=== PATIENT | male | born 1965 | race Caucasian/White ===

== ENCOUNTER 2017-05-22 12:15 | Emergency (ER) | payer OTHER ==
--- NOTE | 2017-05-22 13:29 | EDPHY ---
H & P Stated Complaint: siezures starting last , cognitive changes, ? withdrawl from ambien Time Seen by Provider: 05/22/17 13:28 - Personal History Current Tetanus/Diphtheria Vaccine: Yes Current Tetanus Diphtheria and Acellular Pertussis (TDAP): Yes Tetanus Vaccine Date: 2011 - Medical/Surgical History Hx Asthma: No Hx Chronic Respiratory Disease: No Hx Diabetes: No Hx Cardiac Disease: No Hx Renal Disease: No Hx Cirrhosis: No Hx Alcoholism: No Hx HIV/AIDS: No Hx Splenectomy or Spleen Trauma: No Other PMH: hyperlipidemia - Social History Smoking Status: Never smoked Constitutional: Initial Vital Signs Temperature (C) 37.1 C 05/22/17 12:21 Heart Rate 76 05/22/17 12:21 Respiratory Rate 1 L 05/22/17 12:21 Blood Pressure 161/101 H 05/22/17 12:21 O2 Sat (%) 95 05/22/17 12:21 O2 Delivery Mode Room Air Allergies/Adverse Reactions: aspirin Allergy (Intermediate, Verified 05/22/17 12:20) Sulfa (Sulfonamide Antibiotics) [Sulfa(Sulfonamide Antibiotics)] Allergy ( Verified 05/22/17 12:20) Home Medications: Medication Instructions Recorded Atorvastatin Calcium [Lipitor 40 40 mg PO DAILY 11/23/12 mg (RX)] Medical Decision Making - Diagnostics Imaging: Discussed imaging studies w/ scalloper Radiologist, I viewed and interpreted images myself ED Course/Re-evaluation: CHIEF COMPLAINT: Cognitive changes and arm "seizures" HISTORY OF PRESENT ILLNESS: The patient is a 52 y/o male complaining of cognitive issues and right arm "seizures" for the last 3 weeks since stopping Ambien use. He says, "I've been having some disorientation that started 3 weeks ago," which he describes as "sophia-vu with anxiety and panic in there that passes quickly." Last , 5 days ago, "I started having a physical seizure in my arm that has occurred continuously every 5 minutes." He describes this as a right arm spasm that he can't control and occasional an associated small jerk in his right leg. He correlates his symptoms with stopping Ambien and reports he had no symptoms prior to discontinuance of this medication. He saw his PCP today for this and had labs drawn and an EEG ordered. He denies neck or back pain, headache, fever, recent trauma, or infectious symptoms. He has been able to exercise and ride his bike through these "seizures," but is able to pull his hand off the bike when they occur. He is normally healthy, but notes he's been under a lot of stress recently. REVIEW OF SYSTEMS: A 10 point review of systems was performed and is negative with the exception of the elements mentioned in the history of present illness. PHYSICAL EXAM: HR, BP, O2 Sat, RR. Temp noted General Appearance: Alert, well hydrated, appropriate, and non-toxic appearing. Head: Atraumatic without scalp tenderness or obvious injury Eyes: Pupils equal, round, reactive to light and accommodation, EOMI, no trauma , no injection. Nose: Atraumatic, no rhinorrhea, clear. Throat: Mucus membranes moist. Neck: Supple, nontender, no lymphadenopathy. Respiratory: No retractions, no distress, no wheezes, and no accessory muscle use. Lungs are clear to auscultation bilaterally. Cardiovascular: Regular rate and rhythm, no murmurs, rubs, or gallops. Good capillary refill all extremities. Gastrointestinal: Abdomen is soft, nontender, non-distended, no masses, no rebound, no guarding, no peritoneal signs. Musculoskeletal: Normal active ROM of all extremities, atraumatic. Neurological: Alert, appropriate, and interactive. Isolated right upper extremity contracture that lasts 2-3 seconds and includes hand, otherwise non- focal. Skin: No rashes, good turgor, no nodules on palpation. Past medical history: Hyperlipidemia Past surgical history: Denies Family history: Noncontributory Social history: Lives in [place], , employed. DIAGNOSTICS/PROCEDURES/CRITICAL CARE TIME: Head CT and CTA: negative DIFFERENTIAL DIAGNOSIS: The differential diagnosis for the patient's seizure included but was not limited to electrolyte abnormality, alcohol withdrawal, medication noncompliance, head injury, MEDICAL GENETICIST structural abnormality, and break through seizure. MEDICAL DECISION MAKING: This is a normally healthy 52 y/o male who presents with a 3-week history of cognitive changes described as "disorientation" and sophia vu" now associated with a right upper arm spasm every few minutes for the last 5 days. During assessment he does appear to have an involuntary 2-3 second contracture of his right arm with finger involvement. Otherwise normal neuro exam. He does appear quite anxious. Labs performed by his PCP this morning were normal. Plan for head CT and CTA to rule out structural causes for what appears to be a brief focal motor seizure. Reassessed patient and discussed results. Imaging is negative. Patient will be referred to neurology for follow up with standard precautions. He is comfortable with this plan. Departure - Departure Disposition: Home, Routine, Self-Care Clinical Impression: Cognitive changes, Focal motor seizure disorder, of right arm Condition: Good Instructions: New-Onset Seizure in Adults (ED) Additional Instructions: Follow up with neurologist this week. Do perform activities that could put you or others at risk in case of recurrent seizure until cleared by neurologist. Return to the ED for any worsening of condition. Referrals: Indu Linn PA [Primary Care Provider] - As per Instructions José Miguel Gracia MD [Medical Doctor] - As per Instructions Report Scribed for: Cristian Live Report Scribed by: Vanessa López Date of Report: 05/22/17 Time of Report: 13:54
[2017-05-22] MEDS ORDERED: IOPAMIDOL (ISOVUE-300) 100 ML BTL ONE (14:07)
[2017-05-22 15:29] VITALS: BP 159/95; PULSE 74; RESP 16; TEMP 97.9; O2SAT 93
== END 2017-05-22 15:29 | disposition home or self-care (01) ==
DX: G40.409 Other generalized epilepsy and epileptic syndromes, not intractable, without status epilepticus (principal); R41.89 Other symptoms and signs involving cognitive functions and awareness
CPT/HCPCS: Q9967

== ENCOUNTER 2017-05-24 11:58 | Observation (INO) | payer OTHER ==
[2017-05-24 12:04] VITALS: RESP 16
[2017-05-24] MEDS ORDERED: levETIRAcetam 1000MG/NACL 100 ML IV ONE (12:09)
--- NOTE | 2017-05-24 12:12 | EDPHY ---
H & P Time Seen by Provider: 05/24/17 12:10 HPI/ROS: CHIEF COMPLAINT: Seizures HISTORY OF PRESENT ILLNESS: This patient is a 52 y/o male arriving at the request of his neurologist, Dr. Galaviz, for evaluation of focal seizures. Three weeks ago, he began to have 5 second episodes of sophia vu and visual hallucinations, which he describes as a "scene that is not really present". He feels disoriented during these episodes, and they occur every 15 minutes. No associated dizziness or nausea. One week ago , he began having a right-sided arm spasms as well. During these episodes, the right side of his face clenches, his right hand clenches and shakes, and his right arm draws towards his chest involuntarily. Now the right side of his face and his right leg are involved and the seizure-like activity. Afterwards, he feels an "adrenaline hill". No pain associated. He denies neck pain or recent chiropractic manipulation. He notes his symptoms began after he stopped taking Ambien. Additionally, he has been under a considerable amount of stress recently. His brother had been very ill and yesterday. He endorses increased alcohol use in the past week. The patient was evaluated 05/22/[address] head was negative at that time. No recent trauma or illness. Dr. Galaviz recommends MRI, IV Keppra, and admission for further evaluation. REVIEW OF SYSTEMS: A 10 point review of systems was performed and is negative with the exception of the elements mentioned in the history of present illness. Past Medical/Surgical History: Hyperlipidemia Social History: Recent alcohol use of 2-3 drinks per night related to increased stress. . at bedside. Lives in [place]. Employed. Nonsmoker. Smoking Status: Never smoked Physical Exam: General Appearance: Alert, pleasant. During my exam, 2 episodes of right facial twitching, right arm involuntary flexion, and involuntary movement of the right leg. Eyes: Pupils equal and round, no conjunctival pallor or injection ENT, Mouth: Mucous membranes moist Neck: Normal inspection Respiratory: Lungs are clear to auscultation Cardiovascular: Regular rate and rhythm Gastrointestinal: Abdomen is soft and non-tender Neurological: Alert, oriented x3, cranial nerves II through XII intact, motor 5 /5, sensory intact to light touch, normal gait Skin: Warm and dry, no rash Extremities: Nontender, no pedal edema Psychiatric: Mood and affect normal Constitutional: Initial Vital Signs Temperature (C) 36.9 C 05/24/17 12:02 Heart Rate 76 05/24/17 12:02 Respiratory Rate 16 05/24/17 12:02 Blood Pressure 171/109 H 05/24/17 12:02 O2 Sat (%) 95 05/24/17 12:02 O2 Delivery Mode Room Air Allergies/Adverse Reactions: aspirin Allergy (Intermediate, Verified 05/24/17 12:01) Sulfa (Sulfonamide Antibiotics) [Sulfa(Sulfonamide Antibiotics)] Allergy ( Verified 05/24/17 12:01) Home Medications: Medication Instructions Recorded Acetaminophen [Tylenol 325mg (*)] 325 mg PO DAILY PRN 05/24/17 Atorvastatin Calcium [Lipitor 20 20 mg PO DAILY 05/24/17 mg (*)] Calcium Carbonate [Oyster Shell 500 mg PO DAILY 05/24/17 Calcium 500 mg (*)] Fluticasone Nasal [Flonase Nasal 1 sprays NASAL DAILY PRN 05/24/17 [place]] Loratadine [Claritin 10 mg] 10 mg PO DAILY PRN 05/24/17 Tetrahydrozoline 0.05% [Visine (*)] 1 drop OP DAILY PRN 05/24/17 levETIRAcetam [Keppra 500 mg (*)] 500 mg PO BID #60 tab 05/25/17 Medical Decision Making - Diagnostics EKG Interpretation: EKG interpreted by me reveals normal sinus rhythm, rate 62, no ST/T changes. Interpretation: normal EKG. Imaging Results: MRI of the brain read by the radiologist is normal. Imaging: Discussed imaging studies w/ call center recruiter Radiologist, I viewed and interpreted images myself ED Course/Re-evaluation: 52 y/o male presents for evaluation of right-sided focal seizures. He is neurologically intact on exam and is having frequent right-sided focal seizures on my exam. Plan for MRI, EKG, labs including CBC, chemistries. Keppra 1 g IV given. EKG shows sinus rhythm, no evidence of ischemia or dysrhythmia. Laboratory studies unremarkable. 12:53 Consulted with hospitalist service. Dr. Cantrell accepts admission for focal seizures. 13:[address] Gracia, neurologist. He will see the patient during his admission. MRI is unremarkable. Decreased seizure activity after the Keppra. Patient has been stable throughout his emergency department stay. Differential Diagnosis: Differential diagnosis includes though it is not limited to Ambien withdrawal, status epilepticus, hypoglycemia, intracranial hemorrhage, CVA, benzodiazepine withdrawal, alcohol withdrawal, epilepsy. - Data Points Laboratory Results: Laboratory Results 05/24/17 12:21 05/24/17 12:21 Medications Given: Discontinued Medications Acetaminophen (Tylenol) 650 mg PO Q4HRS PRN PRN Reason: Pain, Mild/Fever, Can Take PO Stop: 11/20/17 13:03 Last Admin: 05/24/17 15:24 Dose: 650 mg Atorvastatin Calcium (Lipitor) 20 mg PO DAILY JENNIFER Stop: 11/21/17 08:59 Last Admin: 05/25/17 08:00 Dose: Not Given Enoxaparin Sodium (Lovenox) 40 mg SC DAILY [facility] Stop: 11/21/17 08:59 Last Admin: 05/25/17 08:01 Dose: Not Given Levetiracetam (Keppra (Premix)) 100 mls @ 400 mls/hr IV EDNOW ONE Stop: 05/24/17 12:23 Last Admin: 05/24/17 12:39 Dose: 100 mls Levetiracetam (Keppra) 500 mg PO BID JENNIFER Stop: 11/20/17 20:59 Last Admin: 05/25/17 08:01 Dose: 500 mg Departure - [facility] Clinical Impression: Focal seizures Condition: Fair Report Scribed for: Milagro Funk Report Scribed by: Talita Joaquin Date of Report: 05/24/17 Time of Report: 12:11 Physician Review and Approval Statement: 05/24/17 12:11 Portions of this note were transcribed by a medical claims processor. I personally performed a history, physical exam, medical decision making, and confirmed accuracy of information the transcribed note.
[2017-05-24 12:29] LABS: PLATELET COUNT 404 10^3/uL (150-400)
--- NOTE | 2017-05-24 12:33 | CPEKG ---
Heart Rate: 62 RR Interval: 968 P-R Interval: 152 QRSD Interval: 88 QT Interval: 420 QTC Interval: 427 P [place]: 50 QRS [place]: 51 T Wave [place]: 37 EKG Severity - NORMAL ECG - EKG Impression: SINUS RHYTHM Electronically Signed By: Milagro Funk 24-May-2017 14:53:25
[2017-05-24] MEDS ORDERED: ACETAMINOPHEN 325 MG TAB PO PRN (13:04)
[2017-05-24] MEDS ORDERED: ONDANSETRON 4 MG/2 ML VIAL IVP PRN (13:04)
[2017-05-24] MEDS ORDERED: ONDANSETRON DISINTEGRATING 4 MG TAB PO PRN (13:04)
--- NOTE | 2017-05-24 16:11 | GHP ---
[f rep st] HISTORY AND PHYSICAL DATE OF ADMISSION: 05/24/2017 CHIEF COMPLAINT: Rhythmic spasms of the right upper extremity and face. HISTORY OF PRESENT ILLNESS: A 52-year-old male with limited past medical history beyond hyperlipidem ia and insomnia, who presents with 3 weeks of transient episodes that he describes as mild confusion, disorientation, and a sense of sophia vu. Patient would have these moments last for several seconds a nd then spontaneously resolve. These episodes then transformed or were additionally experienced with rhythmic contraction of the right upper extremity and right cheek and face. Patient reports these e pisodes have been occurring multiple times per day, not always associated with these moments of tempo rary confusion and sophia vu. Patient denies any preceding history of episodes like this. Sought care yesterday, had a noncontrast CT of the head which was normal. Patient denies any localized numbness , tingling or weakness. Denies any large seizures with loss of consciousness. Patient has been unde r a lot of recent stress with the terminal illness of his brother. His brother yesterday . He does report that he has increased his alcohol intake to multiple drinks per evening where typic ally it would be 2-3 a week. He additionally has stopped his daily use of Ambien 10 mg when the sophia vu episodes began 3 weeks ago, thinking that it may have somehow contributed. PAST MEDICAL HISTORY: 1. Hyperlipidemia. 2. Severe seasonal allergies. FAMILY HISTORY: Negative for seizure disorders or known neurologic conditions. SOCIAL HISTORY: Patient was a previous smoker for approximately 15 years, quit approximately 15 year s ago. Drinks on average 2-4 drinks a week until recently with his brother's illness, now he has bee n having 3-4 a day. Denies any illicit drugs or marijuana. REVIEW OF SYSTEMS: A 10-point review of systems is negative with the exception of that reported in t he HPI. PHYSICAL EXAMINATION: VITAL SIGNS: Blood pressure 133/90, heart rate 69, respiratory rate 16, 96% o n room air. GENERAL: This is a young healthy-appearing male, sitting up in a chair. HEENT: Notable for moist mucous membranes. Eye exam is negative for any icterus. CARDIAC: Patient is regular rate and rhythm. PULMONARY: Clear to auscultation bilaterally. GASTROINTESTINAL: Positive bowel sounds. A BDOMEN: Soft and nontender. MUSCULOSKELETAL: Negative for any lower extremity edema. SKIN: Negative for any rashes. NEUROLOGIC: Patient is alert and oriented x3. Strength is 5/5 of bilateral upper an d lower extremities. Sensation is intact throughout. Cranial nerves 2-12 are grossly intact. Patie nt had multiple episodes of his right upper extremity and facial twitching/contractions. They lasted for seconds only and patient was clear and responding to questions immediately after these episodes. Patient additionally was able to answer questions that I was asking during the episode without conf usion or the intimation he had lost information while having these rhythmic contractions. Patient ad ditionally had 2 episodes of his sophia vu sensation also without postictal confusion or any disruption in his ability to take in information while these episodes were occurring. DATA: MRI of the brain is normal. LABORATORY: White count 8.8, hematocrit 45.2, platelets of 404. Creatinine is 0.8. ASSESSMENT AND PLAN: This is a 52-year-old male presenting with right upper extremity and facial con tractions. 1. Acute episodes of rhythmic right upper extremity facial twitching/contractions. Patient did have multiple of these episodes during my interview and examination. They do not appear classic for seiz ure activity and that the patient's consciousness is not disrupted during these episodes as well as h is ability to appropriately take in information during an episode and respond immediately after accor dingly. Patient received IV load of Keppra in the emergency department. Initial brain imaging with CT and MRI are normal. I have consulted Neurology to make recommendations related to ongoing treatme nt for seizures as well as additional diagnostics for seizure. We will not order any additional imag ing studies or medications at this time until Dr. Gracia has evaluated the patient. 2. Acute grief/anxiety. It is very possible that the patient's immediate loss of his younger brothe r is contributing to his neurologic experience. Patient reports that the sophia vu episodes did begin when he was first receiving the information that his brother had a terminal illness and when he concu rrently weaned himself off Ambien. Will not empirically treat with any anti anxiety medications at t his time. Again, wait for neurologic consultation and recommendations. 3. Hyperlipidemia. Will continue patient's statin therapy. 4. Prophylaxis with Lovenox. DIET: Regular. DISPOSITION: I expect in less than 2 midnights depending on the patient's neurologic consultation an d clinical progress in his first 24 hours of hospitalization. [facility] Patient will be triaged to the medical-surgical floor for care. /[id number]/MODL
[2017-05-24] MEDS: levETIRAcetam 500 MG TAB PO SCH (21:32)
[2017-05-25] MEDS: levETIRAcetam 500 MG TAB PO SCH (08:01)
[2017-05-25 08:30] VITALS: BP 142/86; PULSE 69; TEMP 97.5; O2SAT 95
[2017-05-25] MEDS ORDERED: ATORVASTATIN CALCIUM 20 MG TAB PO SCH (09:00)
[2017-05-25] MEDS ORDERED: ENOXAPARIN 40 MG/0.4 ML SYR SC SCH (09:00)
--- NOTE | 2017-05-25 12:15 | GCON ---
[f rep st] CONSULTATION NEUROLOGIC CONSULTATION HISTORY OF PRESENT ILLNESS: The patient is a 52-year-old who I am asked to see in neurologic consult ation regarding possible seizure activity. History is obtained from review of the medical records as well as the history and physical from Dr. Cantrell. He has a history of developing some abnormal mov ements over the last 3 weeks. He had an episode where he awoke and had cut his hand. He does not kn ow what happened but attributed it perhaps to the use of Ambien. He stopped that about 3 weeks ago. He then started going through episodes where he would have a very strange phenomenon, like sophia vu o r brief visual hallucinations and could have a brief muscle twitch affecting the right face or arm or leg. This is all something that might last 1 second or in that range. He does not have any sustain ed contractions or persistence of altered awareness with the events. There is not always a feeling o f sophia vu, but the muscle twitch could occur in isolation. The frequency is probably almost every 5 minutes for the last week or so. He has had some significant stress with the of his brother. He has had a little bit of increase in alcohol use. He has remained off the Ambien. PAST MEDICAL HISTORY: History of hyperlipidemia and allergies. No known history of seizures. SOCIAL HISTORY: He has been consuming up to 3-4 drinks of alcohol per day, just since the of h is brother. No other drug use or problems with substances. He is with children. No recent illness or trauma. Dr. Cantrell witnessed episode yesterday with some right upper extremity twitches or contractions lasting just about a second. He was able to continue to communicate immedi ately after the episodes. He had a couple of feelings where he was describing that sophia vu phenomena . He was loaded with Keppra in the emergency room and is currently on 500 mg b.i.d. He is tolerating t hat perfectly well, but the episodes have not significantly changed. ALLERGIES: To aspirin and sulfa. PHYSICAL EXAM: VITAL SIGNS: Blood pressure 142/86, pulse of 69, respirations 16, temperature 36.4. GENERAL: He is well-developed, in no acute distress. HEENT: Eyes are clear. Pupils 3 mm and reac tive. Extraocular movements are intact. Normal facial movement. I did witness 1 episode where he h ad a transient right facial contraction and head turned slightly to the left and a brief contraction of the right upper extremity. This was less than 1 second. I did not witness any other events durzoran g my interview with him. NEUROLOGIC: The motor exam reveals normal muscle bulk and tone with 5/5 str ength. No increased tone on the right or other discoordinated movements. DIAGNOSTIC STUDIES: The brain MRI was reviewed. This is normal. LABORATORY STUDIES: Normal. IMPRESSION: The patient is experiencing episodes over the last 3 weeks with some sophia vu and variabl e degrees of motor contractions on the right face, arm, and leg. Differential considerations include partial seizure phenomenon, tics, or dystonic movements. The precipitating cause is not entirely cl ear. I would not expect the prolonged affects from Ambien to do this. Because there is a sophia vu or cognitive, transient phenomena, I would favor partial seizure phenomena over a movement disorder or tic. Nonepileptic events related to manifestations of his emotional distress and/or this escalated u se of alcohol are also possibilities, but diagnoses of exclusion. He has been loaded with Keppra and will be discharged on 500 mg b.i.d. he should follow up with Dr. Galaviz to arrange for outpatient EEG and I think he is safe to be discharged, but was instructed on what to watch for should anything sig nificantly change. Total unit time of 40 minutes. Copy requested to: BASIA Tejada /[id number]/MODL
--- NOTE | 2017-05-25 17:11 | GDS ---
[f rep st] DISCHARGE SUMMARY DISCHARGE DIAGNOSES: Include: 1. Possible focal seizure disorder. 2. Grief. 3. Insomnia. HISTORY OF PRESENT ILLNESS: This is a 52-year-old male who presents with complaints of recent episod es of sophia vu, confusion, and focal contraction of his right upper extremity and right face. For det ails of the patient's initial presentation please see the History and Physical dated 05/24/2017. CONSULTATIVE SERVICES: Include neurology. PROCEDURES: Include a brain MRI that showed no acute intercerebral abnormalities. HOSPITAL COURSE: By issue: 1. Suspected seizure disorder: Patient was seen by Neurology during this hospitalization. MRI imag ing of the brain was normal. Patient was loaded with Keppra. Episodes were difficult to evaluate an d definitively say were not seizures. Decision has been made to continue Keppra 500 mg t.i.d. at dis position. Patient will follow in the outpatient setting with Neurology in the next several days for EEG and outpatient followup. 2. Acute grief: Patient did just experience the loss of his youngest brother. He was actively grie ving. We did discuss coping strategies and recommended that he decrease his alcohol intake. He will seek resources in the outpatient setting for ongoing symptoms. 3. Insomnia: Patient has a longstanding history of taking high dose Ambien for sleep. He did recen tly discontinue this medication. We encouraged him to continue not using that medication in the futu re. MEDICATIONS AT THE TIME OF TRANSFER: Please reference the Medication Reconciliation printed on 05/25. FOLLOWUP APPOINTMENTS: Include with Neurology in the next several days for EEG and outpatient follow up. PENDING STUDIES: At the time of this dictation, none. TIME SPENT: I spent greater than 30 minutes in the planning and coordination of this discharge. /[id number]/MODL
== END 2017-05-25 09:43 | disposition home or self-care (01) ==
LOC: INTOOBSV 12:53 → F3N 14:16
PROVIDERS: ADMIT Hospitalist; ATTEND Hospitalist
DX: R56.9 Unspecified convulsions (principal); E78.5 Hyperlipidemia, unspecified; F43.22 Adjustment disorder with anxiety; G47.00 Insomnia, unspecified; Z88.2 Allergy status to sulfonamides; Z87.891 Personal history of nicotine dependence
CPT/HCPCS: 70551; 93005; 96374; 99285; G0378; J1953

== ENCOUNTER → 2017-05-30 | Outpatient (CLI) | payer OTHER ==
--- NOTE | 2017-05-30 15:57 | CPEEG ---
[f rep st] ELECTROENCEPHALOGRAM DATE OF STUDY: 05/30/2017 INTERPRETATION: Normal EEG during wakefulness and sleep. There were no potentially epileptogenic abnormalities present during the awake or sleep recordings. During the EEG, the patient reported multiple "seizures." None of these events had an EEG correlate and would be consistent with nonepileptic events. REPORT: This EEG contains 9 Hz alpha over the posterior head regions. The background activity was normal and symmetric. There was no abnormal activation at rest, during photic stimulation or hyperventilation. The patient intermittently became drowsy and fell asleep during the study. There was no abnormal activation during drowsiness, sleep, or during times of arousal. The patient reported 6 "seizures" to the technologist. None of these events had an abnormal EEG correlate. /[id number]/MODL MTDD
== END ==
LOC: FCPNEURO 11:31
PROVIDERS: ATTEND Psychiatry & Neurology Neurology
DX: R56.9 Unspecified convulsions (principal)

== ENCOUNTER → 2017-06-20 | Outpatient (CLI) | payer OTHER ==
[~2017-06-20] MED LIST: GADOBUTROL 10 ML VIAL IVP ONE
== END ==
LOC: FIMAGING 06:58
PROVIDERS: ATTEND Psychiatry & Neurology Neurology
DX: R56.9 Unspecified convulsions (principal)
CPT/HCPCS: A9585